=== PATIENT | female | born 1955 | race Caucasian/White ===

== ENCOUNTER → 2018-02-18 07:43 | Outpatient (CLI) | payer OTHER, SELFPAY ==
[2018-02-18 08:18] LABS: Alanine Aminotransferase 32 IU/L (9-52); Albumin 4.2 g/dL (3.5-5.0); Albumin Globulin Ratio 1.2 (1.0-2.8); Alkaline Phosphatase 461 U/L (38-126); Aspartate Aminotransferase 40 IU/L (14-36); BUN Creatinine Ratio 24.3 (6-22); Bilirubin Total 0.5 mg/dL (0.2-1.3); Blood Urea Nitrogen 17 mg/dL (7-17); Calcium 9.1 mg/dL (8.4-10.2); Carbon Dioxide 25 mmol/L (22-32); Chloride 105 mmol/L (98-107); Estimated Glomerular Filt Rate > 60.0 mL/min (>60); Globulin 3.5 g/dL (1.7-4.1); Glucose 84 mg/dL (80-110); HEMOLYSIS < 15 (0-50); Potassium 4.1 mmol/L (3.4-5.1); Sodium 140 mmol/L (137-145); Total Protein 7.7 g/dL (6.3-8.2)
[2018-02-19 15:39] LABS: CA 15-3 678 U/mL (< 32)
== END ==
PROVIDERS: PCP Family Medicine; Visit Provider Internal Medicine Hematology & Oncology
DX: C50.111 Malignant neoplasm of central portion of right female breast (principal); C79.51 Secondary malignant neoplasm of bone
CPT/HCPCS: 36415; 80053; 86300

== ENCOUNTER → 2018-09-08 07:06 | Outpatient (CLI) | payer OTHER, SELFPAY ==
[2018-09-08 08:28] LABS: Add Manual Diff / Slide Review YES; Hemoglobin 11.3 g/dL (12.0-16.0); Mean Corpuscular HGB Conc 33.4 % (30-36); Mean Corpuscular Hemoglobin 32.2 PG (26-34); Mean Corpuscular Volume 96.5 fL (80-100); Platelet Count 204 X10^3/uL (150-400); Red Blood Cell Count 3.52 X10^6/uL (4.0-5.2); Red Cell Distribution Width 25.3 % (11.6-14.8); White Blood Cell Count 3.3 X10^3/uL (4.5-11.0)
[2018-09-08 08:47] LABS: Neutrophils Absolute Manual 693 /uL (3000-5900); Total Cells Counted 100
[2018-09-08 08:48] LABS: Anisocytosis 2+; Macrocytosis 1+; Poikilocytosis 1+; Target Cells 1+
[2018-09-08 09:08] LABS: Alanine Aminotransferase 38 IU/L (9-52); Albumin 4.5 g/dL (3.5-5.0); Albumin Globulin Ratio 1.6 (1.0-2.8); Alkaline Phosphatase 322 U/L (38-126); Aspartate Aminotransferase 42 IU/L (14-36); BUN Creatinine Ratio 23.3 (6-22); Bilirubin Total 0.4 mg/dL (0.2-1.3); Blood Urea Nitrogen 14 mg/dL (7-17); Carbon Dioxide 26 mmol/L (22-32); Chloride 102 mmol/L (98-107); Cholesterol 185 mg/dL (140-199); Estimated Glomerular Filt Rate > 60.0 mL/min (>60); Globulin 2.9 g/dL (1.7-4.1); Glucose 90 mg/dL (80-110); HDL Cholesterol 107 mg/dL (40-60); HEMOLYSIS < 15 (0-50); LDL Cholesterol Calculated 60 mg/dL (<100); Potassium 3.8 mmol/L (3.4-5.1); Sodium 141 mmol/L (137-145); Total Protein 7.4 g/dL (6.3-8.2); Triglycerides 91 mg/dL (35-150)
[2018-09-11 08:00] LABS: CA 15-3 431 U/mL (< 32)
== END ==
PROVIDERS: Family Provider Family Medicine; PCP Family Medicine; Visit Provider Internal Medicine Hematology & Oncology
DX: C50.111 Malignant neoplasm of central portion of right female breast (principal); C50.911 Malignant neoplasm of unspecified site of right female breast; E78.5 Hyperlipidemia, unspecified; Z00.00 Encounter for general adult medical examination without abnormal findings
CPT/HCPCS: 36415; 80053; 80061; 85025; 86300

== ENCOUNTER → 2018-10-06 08:35 | Outpatient (CLI) | payer OTHER, SELFPAY ==
[2018-10-06 10:40] LABS: Add Manual Diff / Slide Review NO; Basophils Absolute Auto 100 /uL (0-100); Basophils Percent Auto 2.3 % (0-2); Eosinophils Absolute Auto 0 /uL (0-450); Eosinophils Percent Auto 0.5 % (2-4); Hematocrit 33.2 % (36-46); Hemoglobin 11.2 g/dL (12.0-16.0); Lymphocytes Absolute Auto 1400 /uL (1100-4500); Lymphocytes Percent Auto 52.1 % (25-40); Mean Corpuscular HGB Conc 33.9 % (30-36); Mean Corpuscular Hemoglobin 34.6 PG (26-34); Monocytes Absolute Auto 300 /uL (0-900); Monocytes Percent Auto 11.2 % (3-14); Neutrophils Absolute Auto 900 /uL (1500-7000); Neutrophils Percent Auto 33.9 % (50-75); Platelet Count 232 X10^3/uL (150-400); Red Blood Cell Count 3.25 X10^6/uL (4.0-5.2); Red Cell Distribution Width 20.2 % (11.6-14.8); White Blood Cell Count 2.6 X10^3/uL (4.5-11.0)
[2018-10-06 11:04] LABS: Alanine Aminotransferase 34 IU/L (9-52); Albumin 4.4 g/dL (3.5-5.0); Albumin Globulin Ratio 1.4 (1.0-2.8); Alkaline Phosphatase 200 U/L (38-126); Aspartate Aminotransferase 34 IU/L (14-36); Bilirubin Total 0.2 mg/dL (0.2-1.3); Blood Urea Nitrogen 10 mg/dL (7-17); Calcium 8.6 mg/dL (8.4-10.2); Carbon Dioxide 30 mmol/L (22-32); Chloride 103 mmol/L (98-107); Estimated Glomerular Filt Rate > 60.0 mL/min (>60); Globulin 3.1 g/dL (1.7-4.1); Glucose 87 mg/dL (80-110); HEMOLYSIS < 15 (0-50); Sodium 143 mmol/L (137-145); Total Protein 7.5 g/dL (6.3-8.2)
[2018-10-06 11:18] LABS: Anisocytosis 2+; Macrocytosis 1+
[2018-10-08 20:37] LABS: CA 15-3 392 U/mL (< 32)
== END ==
PROVIDERS: PCP Family Medicine; Visit Provider Internal Medicine Hematology & Oncology
DX: C50.111 Malignant neoplasm of central portion of right female breast (principal); C79.51 Secondary malignant neoplasm of bone; G89.3 Neoplasm related pain (acute) (chronic)
CPT/HCPCS: 36415; 80053; 85025; 86300

== ENCOUNTER → 2018-11-03 09:25 | Outpatient (CLI) | payer OTHER, SELFPAY ==
[2018-11-03 10:24] LABS: Add Manual Diff / Slide Review NO; Basophils Absolute Auto 100 /uL (0-100); Basophils Percent Auto 2.1 % (0-2); Eosinophils Absolute Auto 0 /uL (0-450); Eosinophils Percent Auto 0.6 % (2-4); Hematocrit 34.9 % (36-46); Hemoglobin 11.5 g/dL (12.0-16.0); Lymphocytes Absolute Auto 1600 /uL (1100-4500); Lymphocytes Percent Auto 60.6 % (25-40); Mean Corpuscular HGB Conc 32.9 % (30-36); Mean Corpuscular Hemoglobin 34.8 PG (26-34); Mean Corpuscular Volume 105.8 fL (80-100); Monocytes Absolute Auto 400 /uL (0-900); Monocytes Percent Auto 13.3 % (3-14); Neutrophils Absolute Auto 600 /uL (1500-7000); Neutrophils Percent Auto 23.4 % (50-75); Platelet Count 246 X10^3/uL (150-400); Red Cell Distribution Width 17.1 % (11.6-14.8); White Blood Cell Count 2.6 X10^3/uL (4.5-11.0)
[2018-11-03 10:47] LABS: Alanine Aminotransferase 35 IU/L (9-52); Albumin 4.5 g/dL (3.5-5.0); Albumin Globulin Ratio 1.7 (1.0-2.8); Alkaline Phosphatase 190 U/L (38-126); Aspartate Aminotransferase 29 IU/L (14-36); BUN Creatinine Ratio 31.7 (6-22); Bilirubin Total 0.2 mg/dL (0.2-1.3); Blood Urea Nitrogen 19 mg/dL (7-17); Calcium 8.6 mg/dL (8.4-10.2); Carbon Dioxide 27 mmol/L (22-32); Chloride 102 mmol/L (98-107); Estimated Glomerular Filt Rate > 60.0 mL/min (>60); Globulin 2.6 g/dL (1.7-4.1); Glucose 92 mg/dL (80-110); HEMOLYSIS < 15 (0-50); Potassium 4.6 mmol/L (3.4-5.1); Sodium 138 mmol/L (137-145); Total Protein 7.1 g/dL (6.3-8.2)
[2018-11-05 15:18] LABS: CA 15-3 294 U/mL (< 32)
== END ==
PROVIDERS: Family Provider Family Medicine; PCP Family Medicine; Visit Provider Internal Medicine Hematology & Oncology
DX: C50.111 Malignant neoplasm of central portion of right female breast (principal); C79.51 Secondary malignant neoplasm of bone; G89.3 Neoplasm related pain (acute) (chronic)
CPT/HCPCS: 36415; 80053; 85025; 86300

== ENCOUNTER → 2018-12-28 08:04 | Outpatient (CLI) | payer OTHER, SELFPAY ==
[2018-12-28 08:36] LABS: Add Manual Diff / Slide Review NO; Basophils Absolute Auto 100 /uL (0-100); Basophils Percent Auto 3.8 % (0-2); Eosinophils Absolute Auto 0 /uL (0-450); Eosinophils Percent Auto 1.6 % (2-4); Hematocrit 35.3 % (36-46); Lymphocytes Absolute Auto 1200 /uL (1100-4500); Lymphocytes Percent Auto 52.4 % (25-40); Mean Corpuscular Hemoglobin 35.8 PG (26-34); Mean Corpuscular Volume 105.4 fL (80-100); Monocytes Absolute Auto 300 /uL (0-900); Monocytes Percent Auto 11.5 % (3-14); Neutrophils Absolute Auto 700 /uL (1500-7000); Neutrophils Percent Auto 30.7 % (50-75); Platelet Count 203 X10^3/uL (150-400); Red Blood Cell Count 3.35 X10^6/uL (4.0-5.2); Red Cell Distribution Width 15.7 % (11.6-14.8); White Blood Cell Count 2.4 X10^3/uL (4.5-11.0)
[2018-12-28 08:59] LABS: Alanine Aminotransferase 19 IU/L (9-52); Albumin 4.6 g/dL (3.5-5.0); Albumin Globulin Ratio 1.5 (1.0-2.8); Alkaline Phosphatase 172 U/L (38-126); Aspartate Aminotransferase 26 IU/L (14-36); BUN Creatinine Ratio 38.3 (6-22); Bilirubin Total 0.4 mg/dL (0.2-1.3); Blood Urea Nitrogen 23 mg/dL (7-17); Calcium 9.1 mg/dL (8.4-10.2); Carbon Dioxide 28 mmol/L (22-32); Chloride 102 mmol/L (98-107); Estimated Glomerular Filt Rate > 60.0 mL/min (>60); Glucose 94 mg/dL (80-110); HEMOLYSIS < 15 (0-50); Potassium 4.7 mmol/L (3.4-5.1); Sodium 140 mmol/L (137-145); Total Protein 7.6 g/dL (6.3-8.2)
== END ==
PROVIDERS: Family Provider Family Medicine; PCP Family Medicine; Visit Provider Internal Medicine Hematology & Oncology
DX: C50.111 Malignant neoplasm of central portion of right female breast (principal)
CPT/HCPCS: 36415; 80053; 85025

== ENCOUNTER → 2019-01-26 09:11 | Outpatient (CLI) | payer OTHER, SELFPAY ==
[2019-01-26 10:17] LABS: Add Manual Diff / Slide Review NO; Basophils Absolute Auto 100 /uL (0-100); Basophils Percent Auto 2.4 % (0-2); Eosinophils Absolute Auto 100 /uL (0-450); Eosinophils Percent Auto 3.3 % (2-4); Hematocrit 34.9 % (36-46); Hemoglobin 12.1 g/dL (12.0-16.0); Lymphocytes Absolute Auto 1300 /uL (1100-4500); Lymphocytes Percent Auto 43.4 % (25-40); Mean Corpuscular HGB Conc 34.7 % (30-36); Mean Corpuscular Hemoglobin 36.2 PG (26-34); Mean Corpuscular Volume 104.5 fL (80-100); Monocytes Absolute Auto 500 /uL (0-900); Neutrophils Absolute Auto 1100 /uL (1500-7000); Neutrophils Percent Auto 35.9 % (50-75); Platelet Count 316 X10^3/uL (150-400); Red Blood Cell Count 3.34 X10^6/uL (4.0-5.2); Red Cell Distribution Width 15.6 % (11.6-14.8)
[2019-01-26 10:54] LABS: Alanine Aminotransferase 21 IU/L (9-52); Albumin 4.5 g/dL (3.5-5.0); Albumin Globulin Ratio 1.4 (1.0-2.8); Alkaline Phosphatase 164 U/L (38-126); Aspartate Aminotransferase 35 IU/L (14-36); BUN Creatinine Ratio 25.7 (6-22); Bilirubin Total 0.5 mg/dL (0.2-1.3); Blood Urea Nitrogen 18 mg/dL (7-17); Calcium 9.1 mg/dL (8.4-10.2); Carbon Dioxide 28 mmol/L (22-32); Chloride 99 mmol/L (98-107); Estimated Glomerular Filt Rate > 60.0 mL/min (>60); Globulin 3.2 g/dL (1.7-4.1); Glucose 102 mg/dL (80-110); HEMOLYSIS < 15 (0-50); Potassium 4.3 mmol/L (3.4-5.1); Sodium 136 mmol/L (137-145); Total Protein 7.7 g/dL (6.3-8.2)
== END ==
PROVIDERS: Family Provider Family Medicine; PCP Family Medicine; Visit Provider Internal Medicine Hematology & Oncology
DX: C50.111 Malignant neoplasm of central portion of right female breast (principal)
CPT/HCPCS: 36415; 80053; 85025

== ENCOUNTER → 2019-03-01 09:46 | Outpatient (CLI) | payer OTHER, SELFPAY ==
[2019-03-01 10:44] LABS: Add Manual Diff / Slide Review NO; Basophils Absolute Auto 100 /uL (0-100); Basophils Percent Auto 3.4 % (0-2); Eosinophils Absolute Auto 0 /uL (0-450); Eosinophils Percent Auto 1.4 % (2-4); Hematocrit 35.5 % (36-46); Hemoglobin 11.9 g/dL (12.0-16.0); Lymphocytes Absolute Auto 1300 /uL (1100-4500); Lymphocytes Percent Auto 52.2 % (25-40); Mean Corpuscular HGB Conc 33.6 % (30-36); Mean Corpuscular Hemoglobin 35.9 PG (26-34); Mean Corpuscular Volume 106.8 fL (80-100); Monocytes Absolute Auto 400 /uL (0-900); Monocytes Percent Auto 16.5 % (3-14); Neutrophils Absolute Auto 700 /uL (1500-7000); Neutrophils Percent Auto 26.5 % (50-75); Platelet Count 320 X10^3/uL (150-400); Red Blood Cell Count 3.32 X10^6/uL (4.0-5.2); Red Cell Distribution Width 15.7 % (11.6-14.8); White Blood Cell Count 2.5 X10^3/uL (4.5-11.0)
[2019-03-01 11:09] LABS: Alanine Aminotransferase 18 IU/L (9-52); Albumin 4.3 g/dL (3.5-5.0); Albumin Globulin Ratio 1.4 (1.0-2.8); Alkaline Phosphatase 128 U/L (38-126); Aspartate Aminotransferase 30 IU/L (14-36); BUN Creatinine Ratio 22.9 (6-22); Bilirubin Total 0.3 mg/dL (0.2-1.3); Blood Urea Nitrogen 16 mg/dL (7-17); Calcium 9.1 mg/dL (8.4-10.2); Carbon Dioxide 28 mmol/L (22-32); Chloride 102 mmol/L (98-107); Estimated Glomerular Filt Rate > 60.0 mL/min (>60); Globulin 3.1 g/dL (1.7-4.1); Glucose 95 mg/dL (80-110); HEMOLYSIS < 15 (0-50); Potassium 4.5 mmol/L (3.4-5.1); Sodium 140 mmol/L (137-145); Total Protein 7.4 g/dL (6.3-8.2)
== END ==
PROVIDERS: Family Provider Family Medicine; PCP Family Medicine; Visit Provider Internal Medicine Hematology & Oncology
DX: C50.111 Malignant neoplasm of central portion of right female breast (principal)
CPT/HCPCS: 36415; 80053; 85025

== ENCOUNTER → 2019-03-29 08:56 | Outpatient (CLI) | payer OTHER, SELFPAY ==
[2019-03-29 09:47] LABS: Add Manual Diff / Slide Review NO; Basophils Absolute Auto 100 /uL (0-100); Basophils Percent Auto 2.5 % (0-2); Eosinophils Absolute Auto 100 /uL (0-450); Eosinophils Percent Auto 2.3 % (2-4); Hematocrit 32.3 % (36-46); Hemoglobin 11.1 g/dL (12.0-16.0); Lymphocytes Absolute Auto 1500 /uL (1100-4500); Lymphocytes Percent Auto 47.3 % (25-40); Mean Corpuscular HGB Conc 34.3 % (30-36); Mean Corpuscular Hemoglobin 36.6 PG (26-34); Mean Corpuscular Volume 106.6 fL (80-100); Monocytes Absolute Auto 600 /uL (0-900); Monocytes Percent Auto 19.5 % (3-14); Neutrophils Absolute Auto 900 /uL (1500-7000); Neutrophils Percent Auto 28.4 % (50-75); Platelet Count 343 X10^3/uL (150-400); Red Blood Cell Count 3.03 X10^6/uL (4.0-5.2); Red Cell Distribution Width 15.7 % (11.6-14.8); White Blood Cell Count 3.1 X10^3/uL (4.5-11.0)
[2019-03-29 09:53] LABS: Alanine Aminotransferase 16 IU/L (9-52); Albumin 4.3 g/dL (3.5-5.0); Albumin Globulin Ratio 1.4 (1.0-2.8); Alkaline Phosphatase 132 U/L (38-126); Aspartate Aminotransferase 35 IU/L (14-36); Bilirubin Total 0.3 mg/dL (0.2-1.3); Blood Urea Nitrogen 14 mg/dL (7-17); Calcium 9.3 mg/dL (8.4-10.2); Carbon Dioxide 28 mmol/L (22-32); Chloride 101 mmol/L (98-107); Estimated Glomerular Filt Rate > 60.0 mL/min (>60); Glucose 92 mg/dL (80-110); HEMOLYSIS < 15 (0-50); Potassium 4.4 mmol/L (3.4-5.1); Sodium 137 mmol/L (137-145); Total Protein 7.3 g/dL (6.3-8.2)
== END ==
PROVIDERS: Family Provider Family Medicine; PCP Family Medicine; Visit Provider Internal Medicine Hematology & Oncology
DX: C50.111 Malignant neoplasm of central portion of right female breast (principal)
CPT/HCPCS: 36415; 80053; 85025

== ENCOUNTER → 2019-04-27 08:18 | Outpatient (CLI) | payer OTHER, SELFPAY ==
[2019-04-27 09:27] LABS: Add Manual Diff / Slide Review NO; Basophils Absolute Auto 0 /uL (0-100); Eosinophils Absolute Auto 0 /uL (0-450); Eosinophils Percent Auto 1.7 % (2-4); Hematocrit 34.6 % (36-46); Hemoglobin 11.6 g/dL (12.0-16.0); Lymphocytes Absolute Auto 1600 /uL (1100-4500); Lymphocytes Percent Auto 52.1 % (25-40); Mean Corpuscular HGB Conc 33.6 % (30-36); Mean Corpuscular Hemoglobin 36.1 PG (26-34); Mean Corpuscular Volume 107.5 fL (80-100); Monocytes Absolute Auto 400 /uL (0-900); Monocytes Percent Auto 13.8 % (3-14); Neutrophils Absolute Auto 900 /uL (1500-7000); Neutrophils Percent Auto 31.4 % (50-75); Platelet Count 319 X10^3/uL (150-400); Red Blood Cell Count 3.22 X10^6/uL (4.0-5.2); Red Cell Distribution Width 15.5 % (11.6-14.8)
[2019-04-27 09:49] LABS: Alanine Aminotransferase 16 IU/L (9-52); Albumin 4.4 g/dL (3.5-5.0); Albumin Globulin Ratio 1.5 (1.0-2.8); Alkaline Phosphatase 135 U/L (38-126); Aspartate Aminotransferase 31 IU/L (14-36); BUN Creatinine Ratio 27.1 (6-22); Bilirubin Total 0.3 mg/dL (0.2-1.3); Blood Urea Nitrogen 19 mg/dL (7-17); Carbon Dioxide 32 mmol/L (22-32); Chloride 101 mmol/L (98-107); Estimated Glomerular Filt Rate > 60.0 mL/min (>60); Glucose 90 mg/dL (80-110); HEMOLYSIS < 15 (0-50); Potassium 4.9 mmol/L (3.4-5.1); Sodium 141 mmol/L (137-145); Total Protein 7.4 g/dL (6.3-8.2)
== END ==
PROVIDERS: PCP Family Medicine; Visit Provider Internal Medicine Hematology & Oncology
DX: C50.111 Malignant neoplasm of central portion of right female breast (principal)
CPT/HCPCS: 36415; 80053; 85025

== ENCOUNTER → 2019-05-24 09:10 | Outpatient (CLI) | payer OTHER, SELFPAY ==
[2019-05-24 09:55] LABS: Add Manual Diff / Slide Review NO; Basophils Absolute Auto 100 /uL (0-100); Basophils Percent Auto 2.2 % (0-2); Eosinophils Absolute Auto 0 /uL (0-450); Hematocrit 34.5 % (36-46); Hemoglobin 11.7 g/dL (12.0-16.0); Lymphocytes Absolute Auto 1600 /uL (1100-4500); Lymphocytes Percent Auto 49.2 % (25-40); Mean Corpuscular Hemoglobin 36.5 PG (26-34); Mean Corpuscular Volume 107.2 fL (80-100); Monocytes Absolute Auto 500 /uL (0-900); Monocytes Percent Auto 15.2 % (3-14); Neutrophils Absolute Auto 1100 /uL (1500-7000); Neutrophils Percent Auto 32.4 % (50-75); Platelet Count 337 X10^3/uL (150-400); Red Blood Cell Count 3.21 X10^6/uL (4.0-5.2); Red Cell Distribution Width 15.1 % (11.6-14.8); White Blood Cell Count 3.3 X10^3/uL (4.5-11.0)
[2019-05-24 10:55] LABS: Alanine Aminotransferase 21 IU/L (9-52); Albumin 4.3 g/dL (3.5-5.0); Albumin Globulin Ratio 1.4 (1.0-2.8); Alkaline Phosphatase 142 U/L (38-126); Aspartate Aminotransferase 42 IU/L (14-36); BUN Creatinine Ratio 25.7 (6-22); Bilirubin Total 0.4 mg/dL (0.2-1.3); Blood Urea Nitrogen 18 mg/dL (7-17); Calcium 9.3 mg/dL (8.4-10.2); Carbon Dioxide 29 mmol/L (22-32); Chloride 102 mmol/L (98-107); Estimated Glomerular Filt Rate > 60.0 mL/min (>60); Globulin 3.1 g/dL (1.7-4.1); Glucose 93 mg/dL (80-110); HEMOLYSIS < 15 (0-50); Potassium 4.6 mmol/L (3.4-5.1); Sodium 140 mmol/L (137-145); Total Protein 7.4 g/dL (6.3-8.2)
== END ==
PROVIDERS: PCP Family Medicine; Visit Provider Internal Medicine Hematology & Oncology
DX: C50.111 Malignant neoplasm of central portion of right female breast (principal)
CPT/HCPCS: 36415; 80053; 85025

== ENCOUNTER → 2019-06-28 08:15 | Outpatient (CLI) | payer OTHER, SELFPAY ==
[2019-06-28 09:13] LABS: Add Manual Diff / Slide Review NO; Basophils Absolute Auto 100 /uL (0-100); Basophils Percent Auto 2.6 % (0-2); Eosinophils Absolute Auto 100 /uL (0-450); Eosinophils Percent Auto 1.7 % (2-4); Hematocrit 35.2 % (36-46); Hemoglobin 12.3 g/dL (12.0-16.0); Lymphocytes Absolute Auto 1300 /uL (1100-4500); Lymphocytes Percent Auto 37.8 % (25-40); Mean Corpuscular HGB Conc 35.1 % (30-36); Mean Corpuscular Hemoglobin 37.4 PG (26-34); Mean Corpuscular Volume 106.8 fL (80-100); Monocytes Absolute Auto 200 /uL (0-900); Monocytes Percent Auto 6.7 % (3-14); Neutrophils Absolute Auto 1800 /uL (1500-7000); Neutrophils Percent Auto 51.2 % (50-75); Platelet Count 436 X10^3/uL (150-400); Red Cell Distribution Width 15.1 % (11.6-14.8); White Blood Cell Count 3.5 X10^3/uL (4.5-11.0)
[2019-06-28 09:28] LABS: Alanine Aminotransferase 20 IU/L (9-52); Albumin 5.1 g/dL (3.5-5.0); Albumin Globulin Ratio 1.5 (1.0-2.8); Alkaline Phosphatase 171 U/L (38-126); Aspartate Aminotransferase 55 IU/L (14-36); BUN Creatinine Ratio 23.8 (6-22); Bilirubin Total 0.6 mg/dL (0.2-1.3); Blood Urea Nitrogen 19 mg/dL (7-17); Calcium 10.1 mg/dL (8.4-10.2); Carbon Dioxide 30 mmol/L (22-32); Chloride 99 mmol/L (98-107); Estimated Glomerular Filt Rate > 60.0 mL/min (>60); Globulin 3.4 g/dL (1.7-4.1); Glucose 105 mg/dL (80-110); HEMOLYSIS < 15 (0-50); Potassium 4.5 mmol/L (3.4-5.1); Sodium 140 mmol/L (137-145); Total Protein 8.5 g/dL (6.3-8.2)
== END ==
PROVIDERS: Family Provider Family Medicine; PCP Family Medicine; Visit Provider Internal Medicine Hematology & Oncology
DX: C50.111 Malignant neoplasm of central portion of right female breast (principal)
CPT/HCPCS: 36415; 80053; 85025

== ENCOUNTER → 2019-07-19 09:07 | Outpatient (CLI) | payer OTHER, SELFPAY ==
[2019-07-19 10:00] LABS: Add Manual Diff / Slide Review NO; Basophils Absolute Auto 100 /uL (0-100); Eosinophils Absolute Auto 0 /uL (0-450); Eosinophils Percent Auto 1.3 % (2-4); Hematocrit 32.9 % (36-46); Hemoglobin 11.4 g/dL (12.0-16.0); Lymphocytes Absolute Auto 1200 /uL (1100-4500); Lymphocytes Percent Auto 40.9 % (25-40); Mean Corpuscular HGB Conc 34.7 % (30-36); Mean Corpuscular Hemoglobin 37.2 PG (26-34); Mean Corpuscular Volume 107.3 fL (80-100); Monocytes Absolute Auto 500 /uL (0-900); Monocytes Percent Auto 16.3 % (3-14); Neutrophils Absolute Auto 1200 /uL (1500-7000); Neutrophils Percent Auto 39.5 % (50-75); Platelet Count 307 X10^3/uL (150-400); Red Blood Cell Count 3.06 X10^6/uL (4.0-5.2); Red Cell Distribution Width 15.1 % (11.6-14.8); White Blood Cell Count 2.9 X10^3/uL (4.5-11.0)
[2019-07-19 10:08] LABS: Alanine Aminotransferase 28 IU/L (<35); Albumin 4.6 g/dL (3.5-5.0); Albumin Globulin Ratio 1.8 (1.0-2.8); Alkaline Phosphatase 182 U/L (38-126); Aspartate Aminotransferase 55 IU/L (14-36); BUN Creatinine Ratio 21.4 (6-22); Bilirubin Total 0.5 mg/dL (0.2-1.3); Blood Urea Nitrogen 15 mg/dL (7-17); Calcium 9.4 mg/dL (8.4-10.2); Carbon Dioxide 29 mmol/L (22-32); Chloride 101 mmol/L (98-107); Estimated Glomerular Filt Rate > 60.0 mL/min (>60); Globulin 2.6 g/dL (1.7-4.1); Glucose 102 mg/dL (80-110); HEMOLYSIS < 15 (0-50); Potassium 4.4 mmol/L (3.4-5.1); Sodium 139 mmol/L (137-145); Total Protein 7.2 g/dL (6.3-8.2)
[2019-07-21 14:58] LABS: CA 15-3 709 U/mL (< 32)
== END ==
PROVIDERS: PCP Family Medicine; Visit Provider Internal Medicine Hematology & Oncology
DX: C50.111 Malignant neoplasm of central portion of right female breast (principal)
CPT/HCPCS: 36415; 80053; 85025; 86300

== ENCOUNTER → 2019-08-24 08:54 | Outpatient (CLI) | payer OTHER, SELFPAY ==
[2019-08-24 10:07] LABS: Add Manual Diff / Slide Review NO; Basophils Absolute Auto 100 /uL (0-100); Basophils Percent Auto 3.1 % (0-2); Eosinophils Absolute Auto 0 /uL (0-450); Eosinophils Percent Auto 1.2 % (2-4); Hematocrit 31.9 % (36-46); Hemoglobin 11.1 g/dL (12.0-16.0); Lymphocytes Absolute Auto 1100 /uL (1100-4500); Lymphocytes Percent Auto 37.4 % (25-40); Mean Corpuscular HGB Conc 34.8 % (30-36); Mean Corpuscular Hemoglobin 36.9 PG (26-34); Mean Corpuscular Volume 106.1 fL (80-100); Monocytes Absolute Auto 200 /uL (0-900); Monocytes Percent Auto 6.8 % (3-14); Neutrophils Absolute Auto 1500 /uL (1500-7000); Neutrophils Percent Auto 51.5 % (50-75); Platelet Count 394 X10^3/uL (150-400); Red Blood Cell Count 3.01 X10^6/uL (4.0-5.2); Red Cell Distribution Width 15.3 % (11.6-14.8)
[2019-08-24 10:22] LABS: Alanine Aminotransferase 21 IU/L (<35); Albumin 4.6 g/dL (3.5-5.0); Albumin Globulin Ratio 1.7 (1.0-2.8); Alkaline Phosphatase 193 U/L (38-126); Aspartate Aminotransferase 74 IU/L (14-36); BUN Creatinine Ratio 21.4 (6-22); Bilirubin Total 0.4 mg/dL (0.2-1.3); Blood Urea Nitrogen 15 mg/dL (7-17); Calcium 9.5 mg/dL (8.4-10.2); Carbon Dioxide 26 mmol/L (22-32); Chloride 97 mmol/L (98-107); Estimated Glomerular Filt Rate > 60.0 mL/min (>60); Globulin 2.7 g/dL (1.7-4.1); Glucose 89 mg/dL (80-110); HEMOLYSIS < 15 (0-50); Potassium 4.7 mmol/L (3.4-5.1); Sodium 135 mmol/L (137-145); Total Protein 7.3 g/dL (6.3-8.2)
== END ==
PROVIDERS: PCP Family Medicine; Visit Provider Internal Medicine Hematology & Oncology
DX: C50.111 Malignant neoplasm of central portion of right female breast (principal)
CPT/HCPCS: 36415; 80053; 85025

== ENCOUNTER → 2019-08-26 10:39 | Outpatient (CLI) | payer OTHER, SELFPAY ==
--- NOTE | 2019-08-26 | DI.CT.S_ITS ---
PROCEDURE: CT CHEST ABD PEL W CON INDICATIONS: BREAST CANCER TECHNIQUE: After the administration of oral and intravenous contrast, 5 mm thick sections acquired from the lung apices to the symphysis. 5 mm coronal and sagittal reformats were performed, with additional 7 mm coronal MIP reformats through the lungs. For radiation dose reduction, the following was used: automated exposure control, adjustment of mA and/or kV according to patient size. COMPARISON: [facility], UNILATERAL DIAGNOSTIC MAMMO, 11/14/2017, 10:44. FINDINGS: Image quality: Excellent. CHEST: Lungs and pleura: No acute airspace opacities. No pleural effusions or pneumothorax. Central and peripheral airways appear patent and normal in caliber. Mediastinum: Heart size is normal. No pericardial effusion. No mediastinal or hilar adenopathy by size criteria. Thoracic aorta and central pulmonary arteries are normal in size. Esophagus is normal in caliber. No hiatal hernia. Chest wall: A 1.2 cm spiculated mass is present within the right breast deep to the nipple at a middle depth. This corresponds with the mammogram dated 11/14/17. No axillary or supraclavicular adenopathy by size criteria. Thyroid gland is unremarkable. ABDOMEN: Solid organs: The liver is normal in size. There are greater than 20 hypodense lesions within the liver, the largest of which measures approximately 1.5 cm within the inferior right hepatic lobe. Gallbladder is surgically absent. Biliary system is non dilated. Pancreas enhances normally. Spleen is normal in size and enhancement. A splenule is present adjacent to the spleen. No adrenal nodules. Kidneys demonstrate normal size and enhancement, without hydronephrosis. Peritoneum and bowel: Bowel loops demonstrate normal wall thickness and caliber. The appendix is thin walled and gas filled. There are scattered sigmoid diverticula. No evidence for diverticulitis. No free fluid or air. Nodes and vessels: No retroperitoneal or mesenteric adenopathy by size criteria. Aorta and inferior vena cava are normal in size. Miscellaneous: No ventral hernias. PELVIS: Genitourinary: Bladder wall thickness is normal. Uterus and ovaries are grossly unremarkable. Miscellaneous: No inguinal hernias or adenopathy. Bones: Diffuse sclerotic bony lesions are present throughout the pelvis, spine, and ribs. No wedge compression deformities. IMPRESSION: 1. Spiculated mass in the right breast deep to the nipple which likely corresponds with a biopsy-proven neoplasm. 2. Innumerable lesions within the liver suspicious for hepatic metastasis. If clinically indicated, ultrasound could be used to evaluate for ultrasound-guided percutaneous biopsy. Of note, no prior comparisons are available to determine the acuity of these findings and evaluate for disease progression. 3. Diffuse sclerotic disease throughout the pelvis, spine, and ribs consistent with bony metastasis. Dictated by: Nohemi Maguire M.D. on 08/26/2019 at 11:38 Approved by: Nohemi Maguire M.D. on 08/26/2019 at 11:49
--- NOTE | 2019-08-26 | DI.NM.S_ITS ---
PROCEDURE: NM BONE SCAN WHOLE BODY RADIOPHARMACEUTICAL: 20.6 mCi Tc-99m MDP IV. INDICATIONS: BREAST CANCER TECHNIQUE: Delayed whole-body scintigrams were obtained approximately 3-4 hours after intravenous injection of radiotracer. Anterior and posterior views were acquired from vertex to feet. Additional left and right oblique views of the chest/abdomen/pelvis were obtained. COMPARISON: [facility], CT, CT CHEST ABD PEL W CON, 08/26/2019, 11:38. FINDINGS: CT scanning earlier today shows diffuse osteoblastic metastatic disease. The current nuclear medicine bone scan shows generalized abnormal elevated isotope uptake which is even more prominent at each humeral head, the sternum and manubrium, the medial aspect of each clavicle, left greater than right, and also at the sacrum bilaterally. Each of these areas is involved by generalized osteoblastic change without visualized pathologic fracture. Over the lower extremities there is a similar abnormal isotope uptake pattern, and what possibly is a left total knee arthroplasty. Isotope excretion into the kidneys is minimal, a characteristic of extensive metastatic disease into the bone structures resulting in a diminution in isotope that can be excreted through the urinary tract. IMPRESSION: Diffuse osseous metastatic disease asymmetrically prominent at the shoulders, sternum region, and the sacrum bilaterally. This also correlates with the abnormality seen on CT scanning today. Dictated by: Javon Manuel M.D. on 08/26/2019 at 17:32 Approved by: Javon Manuel M.D. on 08/26/2019 at 17:37
== END ==
PROVIDERS: PCP Family Medicine
DX: C50.111 Malignant neoplasm of central portion of right female breast (principal); C79.51 Secondary malignant neoplasm of bone; K76.9 Liver disease, unspecified
CPT/HCPCS: 71260; 74177; 78306; A9503; Q9967

== ENCOUNTER → 2019-09-22 07:55 | Outpatient (CLI) | payer OTHER, SELFPAY ==
[2019-09-22 09:11] LABS: Alanine Aminotransferase 72 IU/L (<35); Albumin 4.7 g/dL (3.5-5.0); Albumin Globulin Ratio 1.4 (1.0-2.8); Alkaline Phosphatase 245 U/L (38-126); Aspartate Aminotransferase 145 IU/L (14-36); BUN Creatinine Ratio 18.9 (6-22); Bilirubin Total 0.4 mg/dL (0.2-1.3); Blood Urea Nitrogen 17 mg/dL (7-17); Calcium 9.4 mg/dL (8.4-10.2); Carbon Dioxide 31 mmol/L (22-32); Chloride 100 mmol/L (98-107); Estimated Glomerular Filt Rate > 60.0 mL/min (>60); Globulin 3.4 g/dL (1.7-4.1); Glucose 87 mg/dL (80-110); HEMOLYSIS < 15 (0-50); Potassium 4.2 mmol/L (3.4-5.1); Sodium 142 mmol/L (137-145); Total Protein 8.1 g/dL (6.3-8.2)
== END ==
PROVIDERS: PCP Family Medicine; Visit Provider Internal Medicine Hematology & Oncology
DX: C50.111 Malignant neoplasm of central portion of right female breast (principal)
CPT/HCPCS: 36415; 80053

== ENCOUNTER → 2019-10-19 09:46 | Outpatient (CLI) | payer OTHER, SELFPAY ==
[2019-10-19 10:16] LABS: Add Manual Diff / Slide Review NO; Basophils Absolute Auto 0 /uL (0-100); Basophils Percent Auto 2.1 % (0-2); Eosinophils Absolute Auto 0 /uL (0-450); Eosinophils Percent Auto 0.5 % (2-4); Hematocrit 29.5 % (36-46); Hemoglobin 10.2 g/dL (12.0-16.0); Lymphocytes Absolute Auto 1000 /uL (1100-4500); Lymphocytes Percent Auto 46.2 % (25-40); Mean Corpuscular HGB Conc 34.5 % (30-36); Mean Corpuscular Hemoglobin 36.7 PG (26-34); Mean Corpuscular Volume 106.4 fL (80-100); Monocytes Absolute Auto 100 /uL (0-900); Monocytes Percent Auto 5.4 % (3-14); Neutrophils Absolute Auto 1000 /uL (1500-7000); Neutrophils Percent Auto 45.8 % (50-75); Platelet Count 283 X10^3/uL (150-400); Red Blood Cell Count 2.77 X10^6/uL (4.0-5.2); White Blood Cell Count 2.2 X10^3/uL (4.5-11.0)
[2019-10-19 10:49] LABS: Alanine Aminotransferase 34 IU/L (<35); Albumin 4.5 g/dL (3.5-5.0); Albumin Globulin Ratio 1.5 (1.0-2.8); Alkaline Phosphatase 299 U/L (38-126); Aspartate Aminotransferase 93 IU/L (14-36); BUN Creatinine Ratio 21.3 (6-22); Bilirubin Total 0.6 mg/dL (0.2-1.3); Blood Urea Nitrogen 17 mg/dL (7-17); Calcium 9.5 mg/dL (8.4-10.2); Carbon Dioxide 26 mmol/L (22-32); Chloride 100 mmol/L (98-107); Estimated Glomerular Filt Rate > 60.0 mL/min (>60); Glucose 98 mg/dL (80-110); HEMOLYSIS < 15 (0-50); Potassium 4.8 mmol/L (3.4-5.1); Sodium 138 mmol/L (137-145); Total Protein 7.5 g/dL (6.3-8.2)
[2019-10-21 15:21] LABS: CA 15-3 1207 U/mL (< 32)
== END ==
PROVIDERS: PCP Family Medicine; Referring Provider Internal Medicine Hematology & Oncology; Visit Provider Internal Medicine Hematology & Oncology
DX: C50.111 Malignant neoplasm of central portion of right female breast (principal); C79.51 Secondary malignant neoplasm of bone; G89.3 Neoplasm related pain (acute) (chronic); D70.9 Neutropenia, unspecified
CPT/HCPCS: 36415; 80053; 85025; 86300

== ENCOUNTER → 2019-11-05 10:10 | Outpatient (CLI) | payer OTHER, SELFPAY ==
--- NOTE | 2019-11-05 10:14 | DI.RAD.S_ITS ---
PROCEDURE: XR CERVICAL SPINE 2V OR 3V INDICATIONS: neck pain s/p GLF TECHNIQUE: 3 view(s) of the cervical spine were acquired. COMPARISON: None. FINDINGS: Bones: No fractures or dislocations to the C7-T1 level. Mild degenerative endplate changes throughout cervical spine is seen. Left worse than right bilateral facet hypertrophic changes are noted with suggestion of bony fusion at the left facet joints at C3-4 through C5-6 levels. The lateral masses of C1 appear intact on the odontoid view. No suspicious bony lesions. Soft tissues: No prevertebral soft tissue swelling. IMPRESSION: No gross acute cervical spine fracture or dislocation. Mild degenerative disc disease in cervical spine with left worse than right bilateral facet hypertrophic changes and fusion. Dictated by: Cheikh Astorga M.D. on 11/05/2019 at 10:52 Approved by: Cheikh Astorga M.D. on 11/05/2019 at 10:53
--- NOTE | 2019-11-05 10:14 | DI.RAD.S_ITS ---
PROCEDURE: XR THORACIC SPINE 3V INDICATIONS: back pain s/p GLF TECHNIQUE: 3 views of the thoracic spine were acquired. COMPARISON: None. FINDINGS: Bones: No fractures or dislocations. No suspicious bony lesions. Degenerative endplate changes in mid to lower thoracic spine is seen. 12 pairs of ribs are noted, and appear intact where visualized. Soft tissues: No paravertebral stripe thickening. IMPRESSION: No acute compression fracture or spondylolisthesis in thoracic spine. Degenerative disc disease in mid to lower thoracic spine. Dictated by: Cheikh Astorga M.D. on 11/05/2019 at 10:53 Approved by: Cheikh Astroga M.D. on 11/05/2019 at 10:58
== END ==
PROVIDERS: PCP Family Medicine; Referring Provider Registered Nurse; Visit Provider Registered Nurse
DX: M50.31 Other cervical disc degeneration, high cervical region (principal); M51.34 Other intervertebral disc degeneration, thoracic region
CPT/HCPCS: 72040; 72072

== ENCOUNTER → 2019-11-15 09:16 | Outpatient (CLI) | payer OTHER, SELFPAY ==
[2019-11-15 09:47] LABS: Hematocrit 27.4 % (36-46); Hemoglobin 9.3 g/dL (12.0-16.0); Mean Corpuscular HGB Conc 33.9 % (30-36); Mean Corpuscular Hemoglobin 36.8 PG (26-34); Mean Corpuscular Volume 108.4 fL (80-100); Platelet Count 189 X10^3/uL (150-400); Red Blood Cell Count 2.53 X10^6/uL (4.0-5.2); Red Cell Distribution Width 17.8 % (11.6-14.8)
[2019-11-15 09:53] LABS: Add Manual Diff / Slide Review YES; White Blood Cell Count 1.9 X10^3/uL (4.5-11.0)
[2019-11-15 10:04] LABS: Alanine Aminotransferase 45 IU/L (<35); Albumin 4.5 g/dL (3.5-5.0); Albumin Globulin Ratio 1.3 (1.0-2.8); Alkaline Phosphatase 467 U/L (38-126); Aspartate Aminotransferase 148 IU/L (14-36); Bilirubin Total 0.6 mg/dL (0.2-1.3); Blood Urea Nitrogen 17 mg/dL (7-17); Calcium 9.5 mg/dL (8.4-10.2); Carbon Dioxide 31 mmol/L (22-32); Chloride 98 mmol/L (98-107); Estimated Glomerular Filt Rate > 60.0 mL/min (>60); Globulin 3.5 g/dL (1.7-4.1); Glucose 99 mg/dL (80-110); HEMOLYSIS < 15 (0-50); Potassium 4.5 mmol/L (3.4-5.1); Sodium 137 mmol/L (137-145)
[2019-11-15 10:11] LABS: Anisocytosis 2+; Neutrophils Absolute Manual 532 /uL (3000-5900); Nucleated Red Blood Cells 1 #/Diff; Poikilocytosis 1+; Total Cells Counted 100
== END ==
PROVIDERS: PCP Family Medicine; Referring Provider Internal Medicine Hematology & Oncology; Visit Provider Internal Medicine Hematology & Oncology
DX: C50.111 Malignant neoplasm of central portion of right female breast (principal)
CPT/HCPCS: 36415; 80053; 85025

== ENCOUNTER → 2019-11-30 14:26 | Outpatient (CLI) | payer OTHER, SELFPAY ==
--- NOTE | 2019-11-30 14:31 | DI.US.S_ITS ---
PROCEDURE: US ABDOMEN COMPLETE INDICATIONS: ABDOMEN PAIN TECHNIQUE: Real-time scanning was performed of the abdominal and retroperitoneal organs, with image documentation. COMPARISON: [facility], CT, CT CHEST ABD PEL W CON, 08/26/2019, 11:38. [facility], US, ABDOMEN COMPLETE, 10/27/2017, 9:41. FINDINGS: Liver: Liver is enlarged. Innumerable heterogeneous lesions are identified throughout the liver. Gallbladder: The gallbladder has been removed. Biliary ducts: Intrahepatic bile ducts are non-dilated. Extrahepatic bile duct caliber measures 6 mm. Normal is 6-7 mm or less in diameter, or 10 mm or less post-cholecystectomy. Pancreas: Visualized portions of the pancreas are sonographically normal. Spleen: Spleen is normal in size and homogeneous in echotexture. Kidneys: Kidneys are normal in size and echotexture. Right kidney measures 11.3 cm long; left kidney measures 11.0 cm long. No hydronephrosis or nephrolithiasis. No solid masses. Aorta: Visualized aorta is normal in caliber at less than 3 cm. Iliacs: Proximal common iliac arteries are normal in caliber at less than 2.5 cm. IVC: Intrahepatic inferior vena cava is patent. Miscellaneous: No free abdominal fluid. IMPRESSION: 1. Multiple hepatic lesions appearing larger and more numerous when compared to CT exam of 08/26/19. Recurrent further evaluation with CT scan is overall appearance is concerning for metastatic disease progression. Dictated by: Treasure Bradley M.D. on 12/02/2019 at 14:45 Approved by: Treasure Bradley M.D. on 12/02/2019 at 14:47
[2019-11-30 14:45] LABS: Bacteria Urine None Seen; RBC Urine None Seen (0-5/HPF)
[2019-11-30 15:26] LABS: Add Manual Diff / Slide Review NO; Basophils Absolute Auto 0 /uL (0-100); Basophils Percent Auto 1.1 % (0-2); Eosinophils Absolute Auto 0 /uL (0-450); Eosinophils Percent Auto 0.2 % (2-4); Hematocrit 25.2 % (36-46); Hemoglobin 8.7 g/dL (12.0-16.0); Lymphocytes Absolute Auto 1300 /uL (1100-4500); Lymphocytes Percent Auto 59.2 % (25-40); Mean Corpuscular HGB Conc 34.5 % (30-36); Mean Corpuscular Hemoglobin 37.5 PG (26-34); Mean Corpuscular Volume 108.9 fL (80-100); Monocytes Absolute Auto 100 /uL (0-900); Monocytes Percent Auto 7.1 % (3-14); Neutrophils Absolute Auto 700 /uL (1500-7000); Neutrophils Percent Auto 32.4 % (50-75); Platelet Count 76 X10^3/uL (150-400); Red Blood Cell Count 2.31 X10^6/uL (4.0-5.2); Red Cell Distribution Width 18.5 % (11.6-14.8); White Blood Cell Count 2.1 X10^3/uL (4.5-11.0)
[2019-11-30 15:30] LABS: INR 1.2 (0.9-1.3); Prothrombin Time 13.2 SECONDS (10.1-12.7)
[2019-11-30 15:37] LABS: Alanine Aminotransferase 50 IU/L (<35); Albumin 4.3 g/dL (3.5-5.0); Albumin Globulin Ratio 1.3 (1.0-2.8); Alkaline Phosphatase 508 U/L (38-126); Aspartate Aminotransferase 158 IU/L (14-36); BUN Creatinine Ratio 16.9 (6-22); Bilirubin Total 0.6 mg/dL (0.2-1.3); Blood Urea Nitrogen 15 mg/dL (7-17); Calcium 9.3 mg/dL (8.4-10.2); Carbon Dioxide 29 mmol/L (22-32); Chloride 98 mmol/L (98-107); Estimated Glomerular Filt Rate > 60.0 mL/min (>60); Globulin 3.4 g/dL (1.7-4.1); Glucose 143 mg/dL (80-110); HEMOLYSIS < 15 (0-50); Potassium 3.8 mmol/L (3.4-5.1); Sodium 135 mmol/L (137-145); Total Protein 7.7 g/dL (6.3-8.2)
[2019-11-30 15:39] LABS: Appearance Urine UA CLEAR; Bilirubin Urine UA NEGATIVE (NEGATIVE); Color Urine UA YELLOW; Glucose Urine UA NEGATIVE (Negative); Ketones Urine UA NEGATIVE (NEGATIVE); Leukocyte Esterase Urine UA NEGATIVE (NEGATIVE); Nitrite Urine UA NEGATIVE (Negative); Occult Blood Urine UA NEGATIVE (Negative); Protein Urine UA NEGATIVE (Negative); Urobilinogen Urine UA 0.2 E.U./dL (0.2)
[2019-11-30 15:47] LABS: Culture Indicated Urine Cult Not Indicated; Squamous Epithelial Cell Urine 1-5 /HPF (0-5/HPF); WBC Urine 1-5/HPF (0-5/HPF)
== END ==
PROVIDERS: PCP Family Medicine; Referring Provider Family Medicine; Visit Provider Family Medicine
DX: R10.9 Unspecified abdominal pain (principal); K76.9 Liver disease, unspecified; C50.911 Malignant neoplasm of unspecified site of right female breast; R11.0 Nausea
CPT/HCPCS: 36415; 76700; 80053; 81001; 85025; 85610